=== PATIENT | male | born 1930 | race Caucasian/White ===

== ENCOUNTER → 2016-08-18 | Outpatient (CLI) | payer OTHER, MEDICARE ==
[~2016-08-18] MED LIST: ABILIFY 2 MG2 M1 PO; ADVAIR HFA115 MCG/21 INH; AMBIEN 5 MG TABL5 M1 PO; AMBIEN PO; ANTIVERT25 MG PO; ASPIRIN EC81 M1 PO; BENTYL 20 MG TA20 M1 PO; BROVANA15 MCG/2 M INH; CALCIUM OYSTER500 MG PO; CLONIDINE0.1 PO; FISHOIL PO; HYDROXYCHLOROQ200 M1 PO; HYTRIN 5 M5 MG/1 CAP PO; IRON PO; IRON159 MG PO; MULTIVITAMINS1 EAC7 PO; NABUMETONE 750750 M1 PO; NORCO 5-325 TA1 EACH PO; OMEPRAZOLE 20 M20 MG PO; PREDNISONE 1 MG1 M1 PO; PREDNISONE 10 M10 MG PO; PROPRANOLOL 1010 M1 PO; PULMICORT0.5 MG/2 M IH; RELAFEN750 MG PO; SAW PALMETTO C1 EACH PO; SERTRALINE HCL100 MG PO; SYMBICORT80 MCG/4.1 INH; TRAMADOL 50 MG50 MG PO; VITAMIN D1000 UNI1 PO; WELLBUTRIN XL150 M1 PO; WELLBUTRIN XL150 MG PO; XOPENEX 0.63 MG/3 M1 INH; XOPENEX0.31 MG/3; XOPENEX0.63 MG/3 IH
--- NOTE | ~2016-08-18 | SLE ---
[place] [address] POLYSOMNOGRAPHY STUDY Name: RUKHSANA DUNBAR [id number] Admission: 08/18/16 Attend Phys: Kian Sarkar MD Discharge: Date of : [birth year] Report #: [id number] THIS REPORT FOR: //name// CC: Kian Ruiz The patient with prior history of obstructive sleep apnea, intolerant to CPAP. COMMENTS: BiPAP titration: Titrated at IPAP of 12, EPAP of 8, 14/10, 16/12, 18/14, 20/16, 21/17, 22/18, 24/19, 25/20, 27/21. A definite BiPAP setting was not established. However, the patient did relate he slept better. Please see titration. IMPRESSION: 1. Obstructive sleep apnea, G47.33. 2. CPAP intolerance. 3. Arrhythmia. 4. A definite BiPAP setting was not established. SUGGESTIONS: 1. In addition to specific therapy, the patient should be cautioned regarding driving or operating dangerous machinery unless fully alert. 2. Oral appliance or appropriate surgery may be considered with appropriate followup. 3. As he already has a BiPAP machine, a trial of BIPAP of 25, EPAP of 18 with 2 liters of O2 is initially recommended. 4. If this does not resolve his issues, an ASV titration night may be considered. 5. If signs and symptoms not improved with therapy, further evaluation is recommended. <ELECTRONICALLY SIGNED> By: Kian Sarkar MD 09/26/16 [id number] [id number] Kian Sarkar MD /nt
== END ==
LOC: SLEEPLAB 08-12 13:07
DX: G47.33 Obstructive sleep apnea (adult) (pediatric) (principal)

== ENCOUNTER 2017-01-06 10:42 | Emergency (ER) | payer OTHER, MEDICARE ==
[~2017-01-06] VITALS: Ht 180.3 cm; Wt 108.4 kg
--- NOTE | ~2017-01-06 | EKG ---
[place] [address] [facility] [place] [address] ELECTROCARDIOGRAM REPORT Name: RUKHSANA DUNBAR [id number] Admission: 01/06/17 Attend Phys: Discharge: 01/06/17 Date of : [birth year] Report #: [id number] THIS REPORT FOR: //name// [facility] ED Test Date: 2017-01-06 Test Time: 10:51:50 Pat Name: RUKHSANA DUNBAR Department: Room: Gender: Vocal Performer: Jing HARDING : 1930 Requested By: Seth Sue Order Number: [id number] MD: Isaias Grimm Measurements Intervals [place] Rate: 78 P: 5 MO: 222 QRS: -12 QRSD: 111 T: 43 QT: 399 QTc: 455 Interpretive Statements Sinus rhythm Prolonged MO interval Possible Inferior infarct, old Baseline wander in lead(s) V2 Compared to ECG 06/04/2015 13:43:49 No significant change was found Electronically Signed On 01-08-2017 15:37:42 CDT by Isaias Grimm [email or web address] <ELECTRONICALLY SIGNED> By: Isaias Grimm MD, [facility] 01/08/17 1537 [id number] Isaias Grimm MD, [facility] /EPI
[2017-01-06 11:11] LABS: HEMATOCRIT 33.1 % (42.0-52.0); HEMOGLOBIN 11.1 gm/dL (14.0-18.0); MCH 30.1 pg (26.0-34.0); MCHC 33.4 g/dL (28.0-37.0); MCV 90.1 fL (80.0-100.0); PLATELET COUNT 108 thou/uL (150-400); RBC 3.68 mil/uL (4.50-6.00); RDW 13.8 % (10.5-14.5); WBC 14.1 thou/uL (4.0-11.0)
[2017-01-06 11:13] LABS: MANUAL DIFF YES
[2017-01-06 11:14] LABS: CALCIUM 8.9 mg/dL (8.5-10.1); CREATININE 1.6 mg/dL (0.7-1.3)
[2017-01-06] MEDS ORDERED: ARTIFICIAL TEA1 EACH OP (11:58)
[2017-01-06] MEDS ORDERED: XANAX 0.25 MG0.25 MG PO (11:58)
[2017-01-06 11:59] LABS: ABSOLUTE NEUTROPHILS 11.4 thou/uL (1.4-8.2); TOTAL CELL COUNT 100
[2017-01-06] MEDS ORDERED: COUGH DROPS2.7 MG MM (11:59)
[2017-01-06 12:00] LABS: ANISOCYTOSIS SLIGHT; LARGE PLATELETS OCCASIONAL
[2017-01-06] MEDS ORDERED: LASIX 20 MG TAB20 MG PO ×2 (12:00→12:01)
[2017-01-06] MEDS ORDERED: FLONASE 0.05%50 MCG NASAL (12:00)
[2017-01-06] MEDS ORDERED: HYDROCODONE-APA1 TA1 PO (12:13)
[2017-01-06] MEDS ORDERED: MELATONIN1 MG PO (12:14)
[2017-01-06] MEDS ORDERED: MILK OF MA2400 MG/10 PO (12:21)
[2017-01-06] MEDS ORDERED: POTASSIUM20 PO (12:21)
[2017-01-06] MEDS ORDERED: TYLENOL325 MG PO (12:23)
== END 2017-01-06 14:56 | disposition home or self-care (01) ==
LOC: ER 10:42
PROVIDERS: Emergency Medicine
DX: R19.7 Diarrhea, unspecified (principal); F32.9 Major depressive disorder, single episode, unspecified; N40.0 Benign prostatic hyperplasia without lower urinary tract symptoms; G47.33 Obstructive sleep apnea (adult) (pediatric); K21.9 Gastro-esophageal reflux disease without esophagitis; M19.90 Unspecified osteoarthritis, unspecified site; J45.909 Unspecified asthma, uncomplicated; J84.10 Pulmonary fibrosis, unspecified; Z98.890 Other specified postprocedural states; Z86.73 Personal history of transient ischemic attack (TIA), and cerebral infarction without residual deficits; Z88.6 Allergy status to analgesic agent; Z88.2 Allergy status to sulfonamides

== ENCOUNTER → 2017-01-16 | Outpatient (CLI) | payer OTHER, MEDICARE ==
[~2017-01-16] MED LIST changes: +ARTIFICIAL TEA1 EACH OP; +COUGH DROPS2.7 MG MM; +FLONASE 0.05%50 MCG NASAL; +HYDROCODONE-APA1 TA1 PO; +LASIX 20 MG TAB20 MG PO; +MELATONIN1 MG PO; +MILK OF MA2400 MG/10 PO; +POTASSIUM20 PO; +TYLENOL325 MG PO; +XANAX 0.25 MG0.25 MG PO
== END ==
LOC: RAD 15:29
DX: R06.00 Dyspnea, unspecified (principal)